=== PATIENT | female | born 1970 | race Caucasian/White ===

== ENCOUNTER 2017-03-06 16:40 | Emergency (ER) | payer BC, OTHER ==
[~2017-03-06] VITALS: Ht 177.8 cm; Wt 100.0 kg
[~2017-03-06 16:40] MED LIST: DOXY100T20 PO; HYDR-906 PO; IBUP-1542 PO; KET2CR15 TOP; NAPR-688 PO; NITR-58 PO
[2017-03-06 17:03] VITALS: Ht 177.8 cm; Wt 100.0 kg
--- NOTE | 2017-03-06 17:13 | ERD ---
ER Documentation Chief Complaint Chief Complaint C/O OF LOWER ABD PAIN. STATES " I HAVE A UTI" HPI This is a 46-year-old female with a history of hypertension. 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 The patient reports pain and burning and increased frequency with urination. She just feels very uncomfortable in her uniform. The patient also endorses mild intermittent diarrhea, which she states she gets sometimes when she ultimately gets diagnosed with urinary infections. The patient describes labial and perianal irritation. The patient reports that this is been an ongoing issue. The patient has had a urinary tract infection in the past, and she feels that this is what is going on today. She went to [facility] and got test strips that came back positive for a possible urinary infection. She came to the emergency department for confirmation of this and hopefully to get antibiotics. The patient denies feeling sick recently. The patient denies fever or chills. The patient has had no headache or vision changes. The patient does not endorse neck or back pain. The patient denies lightheadedness or dizziness. The patient has had no chest pain or shortness of breath or trouble breathing. The patient denies nausea or vomiting. The patient has had no focal deficits. The patient has had no weakness or numbness or tingling to the face or extremities. ROS All systems reviewed and are negative except as per history of present illness. Medications Home Meds Active Scripts Ketoconazole* (Ketoconazole* 2% Cream (15gm)) 1 Applic Cr, 1 APPLIC TOP BID for 30 Days, #1 TUB Prov:KARINE THURMAN PA-C 12/27/15 Ibuprofen* (Ibuprofen*) 600 Mg Tablet, 600 MG PO Q6H Y for PAIN, #30 TAB Prov:KARINE THURMAN PA-C 12/27/15 Doxycycline Hyclate* (Doxycycline Hyclate*) 100 Mg Tablet.dr, 100 MG PO BID for 7 Days, TAB Prov:SHERLEY PORTILLO PA-C 04/29/15 Hydrocodone Bit-Acetaminophen (Ray) 5-325 Mg Tablet, 1 TAB PO Q4H Y for PAIN, #10 TAB Prov:NUSRAT LEWIS DO 02/16/15 Naproxen* (Naproxen*) 500 Mg Tablet, 500 MG PO BID Y for PAIN, #14 TAB Prov:NUSRAT LEWIS DO 02/16/15 Nitrofurantoin Monohyd Macrocr* (Macrobid*) 100 Mg Capsr, 100 MG PO BID for 7 Days, CAP Prov:NELY CARDOZO MD 02/14/15 Allergies Allergies: Coded Allergies: No Known Allergy (Unverified , 02/16/15) PMhx/Soc History of Surgery: Yes (partial hysterectomy) Anesthesia Reaction: No Hx Neurological Disorder: No Hx Respiratory Disorders: No Hx Cardiac Disorders: Yes (HTN) Hx Psychiatric Problems: No (anxiety) Hx Miscellaneous Medical Probl: No (fibroids) Hx Alcohol Use: Yes Hx Substance Use: No Hx Tobacco Use: Yes FmHx Family History: No coronary disease, No diabetes Physical Exam Vitals Vital Signs Date Time Temp Pulse Resp B/P Pulse Ox O2 Delivery O2 Flow Rate FiO2 03/06/17 17:03 98.1 75 20 136/72 97 Physical Exam Const: No apparent distress, well-developed, well-nourished Head: Normocephalic, Atraumatic Eyes: Normal Conjunctiva. Extraocular movements intact. Pupils equal, round and reactive to light ENT: Normal External Ears, Nose and Mouth. Neck: Full range of motion. No meningismus. Resp: Clear to auscultation bilaterally, No wheezes, rales or rhonchi Cardio: Regular rate and rhythm. No murmurs, rubs or gallops Abd: Obese. Soft, non distended. Mild suprapubic tenderness. Normal bowel sounds Anal: Faint perianal erythema. Small external hemorrhoid. Patient requested deferment to rectal exam. : Deferred Skin: No petechiae. No rash to pannus. Back: No midline tenderness. No CVA tenderness Ext: No cyanosis, or edema Neur: Awake and alert, oriented 4. Cranial nerves intact. No facial droop. Normal strength, sensation and coordination. Psych: Normal Mood and Affect Results 24 hrs Laboratory Tests Test 03/06/17 17:16 03/06/17 17:23 Urine Color YELLOW Urine Clarity SLIGHTLY CLOUDY Urine pH 5.0 Urine Specific [place] 1.020 Urine Ketones NEGATIVEmg/dL Urine Nitrite NEGATIVEmg/dL Urine Bilirubin NEGATIVEmg/dL Urine Urobilinogen NEGATIVEmg/dL Urine Leukocyte Esterase NEGATIVELeu/ul Urine Microscopic RBC 0/HPF Urine Microscopic WBC 1/HPF Urine Squamous Epithelial Cells FEW/HPF Urine Bacteria FEW/HPF Urine Mucus FEW/HPF Urine Hemoglobin NEGATIVEmg/dL Urine Glucose NEGATIVEmg/dL Urine Total Protein NEGATIVEmg/dl Bedside Urine pH (LAB) 5.5 Bedside Urine Protein (LAB) Negative Bedside Urine Glucose (UA) Negative Bedside Urine Ketones (LAB) Negative Bedside Urine Blood Negative Bedside Urine Nitrite (LAB) Negative Bedside Urine Leukocyte Esterase (L Negative Procedures/MDM MDM The patient's presentation warrants further investigation. The patient has suprapubic tenderness and dysuria, consistent with a urinary tract infection. We will obtain a urinalysis. The patient deferred a rectal exam as well as a pelvic exam, because she does work here. LABS The patient's urinalysis shows no nitrites or leukocyte esterase or white blood cells. There is trace bacteria but also squamous epithelia. I have low suspicion for a urinary tract infection. TREATMENT/DISPOSITION The patient was given a prescription for Pyridium to help with her symptoms. I do not see any obvious evidence of urinary tract infection, and I will not treat with antibiotics at this time. I do not feel that a urine culture is warranted presently. The patient does have what appears to be a contact dermatitis around her perianal region. She will be prescribed Anusol ointment that she may use as needed for discomfort. She may also use Preparation H [id number]. 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 She will follow-up with her physician, who may perform these exams if warranted at that time. Given her recurrent symptoms, a urologist appointment may be warranted as an outpatient. She should discuss this with her primary care physician as well. An external exam was performed that did reveal one external hemorrhoid. It is not actively bleeding at this time. At this time, I feel that the patient stable for discharge. The patient will need follow-up with his primary care physician in 2-3 days. The patient will be given strict precautions with which to return to the emergency department. The patient's blood pressure was elevated at greater than 120/80 while in the emergency department. The patient was otherwise stable with no evidence of hypertensive urgency or emergency or end organ damage. The patient does not require admission for blood pressure control. I have discussed with the patient the risks of hypertension. I have advised the patient to follow up with the primary care physician for outpatient monitoring and treatment for hypertension in 2-3 days. I have instructed the patient to return to the ER for any new or worsening symptoms including chest pain, shortness of breath, headache, blurred vision, confusion, nausea, vomiting or LOC. Disclaimer: Inadvertent spelling and grammatical errors are likely due to EHR/ dictation software use and do not reflect on the overall quality of patient care. Note that the electronic time recorded on this note does not necessarily reflect the actual time of the patient encounter. Departure Diagnosis: Primary Impression: Dysuria Additional Impressions: Bladder spasm Dermatitis Condition: Stable RENATE LUNDY MD Mar 06, 2017 17:13
[2017-03-06 17:23] LABS: URINE BLOOD (Dip) POC Negative (NEGATIVE)
[2017-03-06 18:18] LABS: ADD UMIC NO; UR ASCORBIC ACID NEGATIVE (NEGATIVE); UR BACTERIA FEW /HPF (NONE SEEN); UR BILIRUBIN (Dip) NEGATIVE (NEGATIVE); UR BLOOD (Dip) NEGATIVE (NEGATIVE); UR CLARITY SLIGHTLY CLOUDY (CLEAR); UR COLOR YELLOW (YELLOW); UR GLUCOSE (Dip) NEGATIVE (NEGATIVE); UR KETONES (Dip) NEGATIVE (NEGATIVE); UR LEUKOCYTE ESTERASE (Dip) NEGATIVE Leu/ul (NEGATIVE); UR MUCUS FEW /HPF (NONE SEEN); UR NITRITE (Dip) NEGATIVE (NEGATIVE); UR RBC 0 /HPF (0-5); UR SQUAMOUS EPITHELIAL CELL FEW /HPF (FEW); UR TOTAL PROTEIN (Dip) NEGATIVE (NEGATIVE); UR UROBILINOGEN (Dip) NEGATIVE (NEGATIVE)
[2017-03-06] MEDS ORDERED: PHEN-537 PO (19:05)
[2017-03-06] MEDS ORDERED: HYDR25SU23 PR (19:05)
== END 2017-03-06 19:10 | disposition home or self-care (01) ==
LOC: E/R 16:40
DX: R30.0 Dysuria (principal); N32.89 Other specified disorders of bladder; L30.9 Dermatitis, unspecified; K64.4 Residual hemorrhoidal skin tags; I10 Essential (primary) hypertension; F17.210 Nicotine dependence, cigarettes, uncomplicated
CPT/HCPCS: 81001; 81003; 99283